=== PATIENT | female | born 1990 | race Caucasian/White ===

== ENCOUNTER 2016-08-20 09:49 | Emergency (ER) | payer BC ==
[~2016-08-20] VITALS: Ht 160 cm; Wt 120.0 kg
[~2016-08-20 09:49] MED LIST: LABE100T16 PO; ZNTT/150 PO
[2016-08-20 09:51] VITALS: TEMP 36.7; Ht 160 cm; Wt 120.0 kg
--- NOTE | 2016-08-20 10:35 | EMERGENCY ROOM VISIT NOTE ---
History Report prepared by Emy: Ankit Meza Under the Supervision of: Dr. Jeannette Manzo M.D. First contact with patient: 09:55 Chief Complaint: COUGH Stated Complaint: COUGH,WHEEZING,CHEST PAIN Nursing Triage Summary: Wheezing since monday, went to urgent care on monday. Was put on prednisone, augmentin, and breathing treatments. Cough has been increasing and patient feels like shes getting worse. Productive cough of white sputum. History of Present Illness The patient is a 25 year old female who presents to the Emergency Room with complaints of a worsening constant dry cough for the past five days. The patient states that she is additionally having wheezing and shortness of breath. The patient denies any fever. She states that she went to urgent care four days ago, and it has not gotten any better. The patient denies having asthma, though she states that she does have a family history of asthma. Source of History: patient Onset: five days ago Position: other (global) Quality: other (cough) Timing: constant, worsening Associated Symptoms: + SOB, No fevers Note: Associated symptoms: Wheezing Review of Systems See HPI for pertinent positives & negatives. A total of 10 systems reviewed and were otherwise negative. Past Medical & Surgical Elevated blood pressure complicating , antepartum Family History Asthma Social History Smoking Status: Never Smoker Marital Status: Housing Status: lives with family Occupation Status: employed Current/Historical Medications Scheduled Amoxicillin/Clavulanate Potas (Augmentin), 5 ML PO BID Etonogestrel/Ethinyl Estradiol (Nuvaring), 1 EA VAGRING MONTHLY Miscellaneous Medications Prednisone (Prednisone), 1 MG PO Allergies Coded Allergies: No Known Allergies (Unverified , 08/20/16) Physical Exam Vital Signs Date Time Temp Pulse Resp B/P Pulse Ox O2 Delivery O2 Flow Rate FiO2 08/20/16 11:02 75 18 138/81 98 Room Air 08/20/16 09:55 100 Room Air 08/20/16 09:51 36.7 90 18 123/75 100 Room Air Physical Exam CONSTITUTIONAL: No acute distress HEENT: No icterus, moist mucous membranes NECK: No meningismus, trachea is midline. CARDIOVASCULAR: Regular rate, normal perfusion RESPIRATORY: Unlabored breathing. Clear to auscultation. GASTROINTESTINAL: Non-tender GENITOURINARY: No flank tenderness MUSCULOSKELETAL: Full range of motion NEUROLOGIC: No acute gross focal deficits. PSYCHIATRIC: Normal affect SKIN: Normal for ethnicity. Medical Decision & Procedures ER Provider Diagnostic Interpretation: X-ray results as stated below per interpretation by me and the radiologist. TWO VIEW CHEST CLINICAL HISTORY: Cough. FINDINGS: PA and lateral chest radiographs are obtained. No prior studies are available for comparison at the time of dictation. The examination is degraded by large body habitus. The cardiomediastinal silhouette is unremarkable. The lungs and pleural spaces are clear. There is no pneumothorax. The bony thorax appears intact. IMPRESSION: No active disease in the chest. Electronically signed by: Oren Saha M.D. 08/20/2016 10:52 AM Dictated Date/Time: 08/20/2016 10:51 AM Laboratory Results Test 08/20/16 10:16 Labs reviewed by ED physician. ED Course 1021: Past medical records reviewed. The patient was evaluated in room B7. A complete history and physical examination was performed. 1105: Upon reexamination the patient is resting comfortably. I discussed results and treatment plan with the patient. She verbalizes agreement and understanding. The patient is ready for discharge. Medical Decision Differential diagnoses include but are not limited to; bronchitis, pneumonia 75-year-old presented to the emergency room in 1-2 weeks of cough and concern of her wheezing or possibly pneumonia. Vitals normal. Lungs clear. Chest x- ray negative. Patient advised she likely has a bronchitis and understands to wait another week or 2 for substantial improvement. Impression Primary Impression: Bronchitis Scribe Attestation The scribe's documentation has been prepared under my direction and personally reviewed by me in its entirety. I confirm that the note above accurately reflects all work, treatment, procedures, and medical decision making performed by me. Departure Information Dispostion Home / Self-Care Referrals No Doctor, Assigned (PCP) Forms HOME CARE DOCUMENTATION FORM, IMPORTANT VISIT INFORMATION Patient Instructions ED Bronchitis Viral, My [facility]
[2016-08-20] MEDS ORDERED: ETONMIS VAGRING (10:51)
[2016-08-20] MEDS ORDERED: AMOX1SUS74 PO (10:51)
[2016-08-20] MEDS ORDERED: PRD/1 PO (10:51)
--- NOTE | 2016-08-20 10:53 | DIAGNOSTIC IMAGING REPORT ---
TWO VIEW CHEST CLINICAL HISTORY: Cough. FINDINGS: PA and lateral chest radiographs are obtained. No prior studies are available for comparison at the time of dictation. The examination is degraded by large body habitus. The cardiomediastinal silhouette is unremarkable. The lungs and pleural spaces are clear. There is no pneumothorax. The bony thorax appears intact. IMPRESSION: No active disease in the chest. Electronically signed by: Oren Saha M.D. 08/20/2016 10:52 AM Dictated Date/Time: 08/20/2016 10:51 AM
[2016-08-20 11:02] VITALS: BP 138/81; PULSE 75; O2SAT 98
== END 2016-08-20 11:24 | disposition home or self-care (01) ==
LOC: C.EDB 09:50
DX: J40 Bronchitis, not specified as acute or chronic (principal); Z82.49 Family history of ischemic heart disease and other diseases of the circulatory system

== ENCOUNTER → 2016-08-29 | Outpatient (CLI) | payer BC ==
[~2016-08-29] MED LIST changes: +AMOX1SUS74 PO; +ETONMIS VAGRING; -LABE100T16 PO; +PRD/1 PO; -ZNTT/150 PO
[2016-08-29 12:39] LABS: PROLACTIN 10.61 ng/mL
== END | disposition home or self-care (01) ==
LOC: C.LAB 11:09
PROVIDERS: ATTEND Obstetrics & Gynecology
DX: N91.2 Amenorrhea, unspecified (principal)

== ENCOUNTER 2018-01-30 14:54 | Emergency (ER) | payer BC ==
[~2018-01-30] VITALS: Ht 160 cm; Wt 115.7 kg
[2018-01-30 15:01] VITALS: BP 120/78; PULSE 79; TEMP 36.8; O2SAT 97; Ht 160 cm; Wt 115.7 kg
[2018-01-30] MEDS ORDERED: LIDOCAINE/EPINEPHRINE 1% 20 ML VIAL INFIL ONE (15:15)
--- NOTE | 2018-01-30 15:20 | EMERGENCY ROOM VISIT NOTE ---
History First contact with patient: 15:02 Chief Complaint: LACERATION/CUT (NON-SUTURE) Stated Complaint: CUT ON RIGHT FOOT Nursing Triage Summary: triage note: pt reports she dropped pieces of a trampoline she was helping put together on her right foot at approx 1200 today. dressing to right foot dry and intact in triage. History of Present Illness The patient is a 27 year old female who presents to the Emergency Room with complaints of a laceration on her right foot. The patient states that she was putting together a trampoline when she dropped 1 of the metal bars and struck her right foot. The injury occurred approximately 3 hours ago. She states that she elevated the foot and applied hydrogen peroxide and Neosporin. She reports some throbbing pain rated a 3/10. Her tetanus is up-to-date within the past 5 years. She denies any numbness or weakness. She is having no difficulty moving her toes. She denies any other injuries. There is no active bleeding at this time. She has been able to walk. Review of Systems A complete 6 point review of systems was reviewed with the patient with pertinent positives and negatives as per history of present illness. All else were negative. Past Medical/Surgical History Medical Problems: (1) No significant active problems Surgical Problems: (1) History of section Family History Asthma Social History Smoking Status: Never Smoker Alcohol Use: occasionally Marital Status: Housing Status: lives with family Occupation Status: employed Current/Historical Medications No Active Prescriptions or Reported Meds Physical Exam Vital Signs Date Time Temp Pulse Resp B/P (MAP) Pulse Ox O2 Delivery O2 Flow Rate FiO2 01/30/18 15:01 36.8 79 18 120/78 97 Room Air Physical Exam VITALS: Vitals are noted on the nurse's note and reviewed by myself. Vital signs stable. GENERAL: This is a 27-year-old, in no acute distress, nondiaphoretic, well- developed well-nourished. SKIN: There is a 4 cm linear laceration to the lateral aspect of the dorsum of the right foot. The laceration gapes slightly but there are no foreign bodies, significant vessels, tendons or bones seen in the base of the wound. There is no active bleeding. MUSCULOSKELETAL: Full range of motion of the right ankle and all toes. Capillary refill within 2 seconds. NEURO: Patient was alert and oriented to person place and time. Distal sensation intact. Medical Decision & Procedures Procedure Verbal consent was obtained to perform the procedure. Using sterile technique the wound was cleaned with Betadine. The area was sterilely draped. 6 ml of 1 % buffered lidocaine with epinephrine was used to anesthetize the laceration. Once the patient was anesthetized, the wound was copiously irrigated under pressure with sterile saline. The wound was explored and there were no deep structures injured such as tendons, bone, or significant blood vessels. The laceration was repaired using 6 simple interrupted 5-0 nylon sutures with the wound edges being well approximated. The patient tolerated the procedure well. Hemostasis was achieved. The area was cleaned with sterile saline and dressed with bacitracin ointment and bandage. Medical Decision The patient was evaluated as above. Laceration repair was performed as noted above. A dressing was applied and the patient was placed in a postoperative shoe for her comfort. Suture care instructions were discussed with the patient. She verbalized understanding of my assessment and treatment plan and was discharged home in good condition. Medication Reconcilliation Current Medication List: was personally reviewed by me Blood Pressure Screening Patient's blood pressure: Normal blood pressure Impression Primary Impression: Laceration of foot Departure Information Dispostion Home / Self-Care Condition GOOD Prescriptions No Active Prescriptions or Reported Meds Referrals No Doctor, Assigned (PCP) Patient Instructions My [facility] Additional Instructions You have received 6 sutures on your foot. These sutures are NOT dissolvable and WILL need to be removed by a health care provider in 12-14 days. You can return to the Emergency Department or contact your Primary Care Provider to have the sutures removed. Proper wound care is essential for adequate wound healing and infection prevention. You can shower and clean the wound with soap and water. Do not scour over the wound, pat dry with a towel. Do not submerse the wound (i.e. bathe or dish wash) until the sutures have been removed. You can use an antibiotic ointment with a dressing over the wound for the next 3-4 days. After this time you may leave the wound dry and open to the air. If crust develops over the wound you can use a Q-tip to apply a 1:1 peroxide:water solution to clean the wound. Look for signs of infection of the wound including: increased pain, swelling, foul discharge, streaking, or increased temperature. If any of these are noticed you should return to the Emergency Department for further assessment and treatment. As with any laceration you may have received nerve damage to the surrounding tissues. This damage may or may not be permanent. You should keep the area covered with sunscreen for the first 6 months to 1 year when at risk for exposure to help minimize scarring. You can also use scar reducing creams or Vitamin E oil to help minimize scarring. For pain control, you can use the following uhgh-tia-bscdimh medicines (if >12 yo): - Regular strength (325mg/tab) Tylenol (acetaminophen) 2 tabs every 4-6 hours as needed. Do not exceed 12 tablets in a 24 hour period. Avoid taking more than 4 grams (4000 mg) of Tylenol per day. This includes any other sources of acetaminophen you may take on a regular basis. - Regular strength (200 mg/tab) Advil (ibuprofen) 1-2 tabs every 4-6 hours as needed. Do not exceed a dose of 3200 mg per day. Wear the postoperative shoe for the next 4-5 days or as needed for pain/ difficulty walking. Return to the emergency department if your symptoms worsen despite treatment course outlined above. Problem Qualifiers Primary Impression: Laceration of foot Encounter type: initial encounter Laterality: right Qualified Codes: S91.311A - Laceration without foreign body, right foot, initial encounter
== END 2018-01-30 16:29 | disposition home or self-care (01) ==
LOC: C.EDB 14:55 → C.EDD 16:29
DX: S91.311A Laceration without foreign body, right foot, initial encounter (principal); W20.8XXA Other cause of strike by thrown, projected or falling object, initial encounter

== ENCOUNTER 2019-09-23 05:27 | Inpatient (IN) ==
--- NOTE | 2019-09-12 15:35 | History and Physical Report ---
DATE OF ADMISSION: 09/23/2019 CHIEF COMPLAINT: Previous , term . HISTORY OF PRESENT ILLNESS: The patient is a 28-year-old 3, para 1, had 1 spontaneous AB at 9 weeks. Present is a Clomid . She was on 5 days a cycle of 150 mg Clomid daily. Ultrasound in the first trimester, due date is 09/30/2019. Present has been complicated by some elevation of blood pressure. In her last , she had to be induced at 39 weeks due to blood pressure and she was taking a baby aspirin during most of this . Her first delivery was in 2013, female, failed induction, at 7 pounds, 39 weeks' gestation, induction for elevated blood pressure and sectioned due to cephalopelvic disproportion. Present is scheduled for repeat section due to her previous and cephalopelvic disproportion. PAST MEDICAL HISTORY: She has a girl in good health. ALLERGIES: No known drug allergies. PAST SURGICAL HISTORY: She had one , one D and E, tonsillectomy and adenoidectomy, wisdom teeth removed. MEDICAL HISTORY: No history of rheumatic fever, heart disease, heart murmur, diabetes, or tuberculosis. SOCIAL HISTORY: No smoking. No excessive alcohol intake. 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 FAMILY HISTORY: Mom is 56 in good health. Father is 60, has diabetes, high blood pressure, kidney failure. One brother and one sister in good health. REVIEW OF SYSTEMS: HEAD: No symptoms of frequent or severe headaches. EYES: No symptoms of blurred vision or double vision. EARS: No symptoms of frequent ear infection or difficulty hearing. PHYSICAL EXAMINATION: GENERAL: Well-developed, well-nourished 28-year-old white female, alert, oriented x3 and cooperative, in no acute distress, appeared her stated age. EYES: Conjunctivae are pink. Sclerae white, no evidence of jaundice. EARS: Had normal light reflex bilaterally. NOSE: Had normal mucosa. Septum is midline. There were no polyps. THROAT: No erythema or evidence of infection. Teeth are in good state of repair. HEAD: Normocephalic, normal distribution of hair. NECK: Supple. Trachea midline. Thyroid is not enlarged. There is no adenopathy appreciated. Both carotids are of good intensity. CHEST: Clear to auscultation and percussion. No wheezes, rales or rhonchi appreciated. BREASTS: Normal. ABDOMEN: Revealed term size , estimated weight 7-8 pounds. Well-healed Pfannenstiel scar. PELVIC: Vertex presentation, floating. MUSCULOSKELETAL: Revealed no calf tenderness. IMPRESSIONS OF THIS CASE: Status post section, status post dilation and evacuation, status post tonsillectomy and adenoidectomy, status post wisdom teeth removal and history of hypertension in . PLAN: Repeat section due to cephalopelvic disproportion. MARIA ISABEL
--- NOTE | 2019-09-17 14:49 | Anesthesiology Consultation ---
Date of Service September 17, 2019 Assessment & Plan (1) Encounter for pre-operative examination: Chart Review Chart Review: Acceptable Risk for Surgery and Patient seen in Pre Admission Testing Teaching & Discussion Instructed NPO after midnight before surgery, except medications with 15 cc of water. Medication instructions provided according to the PAT guidelines. History Surgery Operation Date: 09/23/19 07:30 Proposed Procedures p Section in - Guero Alonzo MD Height/Weight Height: 5 ft 3 in Weight: 141.2 kg Allergies Allergy/AdvReac Type Severity Reaction Status Date / Time latex Allergy Intermediate RASH ON Verified 09/12/19 09:14 SKIN nickel Allergy Mild Rash Verified 09/12/19 09:14 CLEANING AGENTS Allergy Intermediate SKIN Uncoded 09/12/19 09:14 IRRITATION CHEEK JEWELRY Allergy Mild Rash Uncoded 09/12/19 09:14 Medications Home Medications Medication Instructions Recorded Confirmed Last Taken PNV cmb#95-ferrous fumarate-FA 1 tab PO DAILY 04/16/19 09/12/19 04/16/19 [] Past Medical History Medical History Acid reflux r/t Morbid obesity (Chronic) Exercise / Class Metabolic Activity II 4-5 Yardwork/Stairs/Walk up hill Past Surgical History Surgical History (Updated 09/17/19 @ 14:49 by Juan Francisco Chavarria) History of section Done for failure to progress after being induced due to concern for preeclampsia. History of D&C History of wisdom tooth extraction Past Anesthesia History No Hx of Anesthesia Complications and No Family Hx of Anesthesia Complications History of PONV No Hx of PONV and No Hx of Motion Sickness Social History Smoking Status: Never smoker Do You Dip or Chew Tobacco: No Hx Alcohol Use: No Hx Substance Use: No substance use type: does not use Review of Systems Pt denies any recent chest pain, shortness of breath, palpitations, fever or URI. +dry cough/nasal congestion Physical Exam Vital Signs BP: 132/83 (patient states has been in the 140s systolic and OB is monitoring. Pt to surgeon's office after PAT) P: 95bpm SPO2: 98% RA T: 98.2 F R: 18 Constitutional + morbidly obese ENMT Mouth: + dental restorations (possible crowns); no chipped teeth and no loose teeth Thyromental Distance: > or= 3.5 Finger Breadths (3.5) Mallampati Class: II Neck normal visual inspection; neck extension not limited Respiratory normal respiratory effort Auscultation: lungs clear to auscultation bilaterally Cardiovascular Rate/Rhythm: regular rate and regular rhythm Heart Sounds: no murmur Testing Laboratory Results 09/17/19 14:59 09/17/19 14:59 PT 9.9 Seconds (9.0-12.0) 09/17/19 14:59 INR 0.9 (0.9-1.1) 09/17/19 14:59 APTT 25.6 Seconds (21.0-31.0) 09/17/19 14:59
[2019-09-17 15:59] LABS: Basophils # (auto) 0.01 K/uL (0-0.2); Basophils % (auto) 0.1 %; Eosinophils # (auto) 0.05 K/uL (0-0.5); Eosinophils % (auto) 0.4 %; Hematocrit (blood only) 33.4 % (37-47); Hemoglobin 10.6 g/dL (12.0-16.0); Immature Granulocytes # (auto) 0.07 K/uL (0.00-0.02); Immature Granulocytes % (auto) 0.6 %; Lymphocytes # (auto) 2.09 K/uL (1.2-3.4); Lymphocytes % (auto) 17.7 %; Mean Corpuscular Hemoglobin 27.5 pg (25-34); Mean Corpuscular Hgb Conc 31.7 g/dL (32-36); Mean Corpuscular Volume 86.8 fL (80-100); Mean Platelet Volume 12.5 fL (7.4-10.4); Monocytes # (auto) 0.62 K/uL (0.11-0.59); Monocytes % (auto) 5.2 %; Platelet Count 173 K/uL (130-400); RDW Coefficient of Variation 15.1 % (11.5-14.5); RDW Standard Deviation 47.7 fL (36.4-46.3); Red Blood Count 3.85 M/uL (4.2-5.4); White Blood Count 11.84 K/uL (4.8-10.8)
[2019-09-17 16:24] LABS: BUN Creatinine Ratio 12.5 (10-20); Calcium 9.1 mg/dl (8.5-10.1); Creatinine Clr Calc Pharmacy 170.4 ml/min; Est GFR (African American) 136.7; Potassium 3.7 mmol/L (3.5-5.1)
[2019-09-17 16:25] LABS: INR 0.9 (0.9-1.1); Partial Thromboplastin Ratio 0.9; Partial Thromboplastin Time 25.6 Seconds (21.0-31.0); Prothrombin Time 9.9 Seconds (9.0-12.0)
[~2019-09-23 05:27] MED LIST changes: -AMOX1SUS74 PO; -ETONMIS VAGRING; +LACTATED RINGER'S 1,000 ML IV SCH; -PRD/1 PO
[2019-09-23] MEDS ORDERED: cefOXitin 2,000 MG in DEXTROSE 5% 50 ML IV SCH (06:00)
[2019-09-23] MEDS ORDERED: LACTATED RINGER'S 1,000 ML IV SCH ×3 (06:00→10:15)
[2019-09-23] MEDS ORDERED: CEFAZOLIN 2,000 MG in SYRINGE 0 ML IV SCH (06:00)
[2019-09-23] MEDS ORDERED: CITRIC ACID/SODIUM CITRATE 15 ML UDC PO SCH ×2 (06:00)
[2019-09-23 06:17] LABS: Basophils # (auto) 0.03 K/uL (0-0.2); Basophils % (auto) 0.2 %; Eosinophils # (auto) 0.07 K/uL (0-0.5); Eosinophils % (auto) 0.5 %; Hematocrit (blood only) 33.4 % (37-47); Hemoglobin 10.7 g/dL (12.0-16.0); Immature Granulocytes # (auto) 0.05 K/uL (0.00-0.02); Immature Granulocytes % (auto) 0.4 %; Lymphocytes # (auto) 2.73 K/uL (1.2-3.4); Lymphocytes % (auto) 20.2 %; Mean Corpuscular Hemoglobin 27.7 pg (25-34); Mean Corpuscular Volume 86.5 fL (80-100); Mean Platelet Volume 12.2 fL (7.4-10.4); Monocytes % (auto) 4.4 %; Neutrophils # (auto) 10.05 K/uL (1.4-6.5); Neutrophils % (auto) 74.3 %; Platelet Count 153 K/uL (130-400); RDW Coefficient of Variation 15.2 % (11.5-14.5); RDW Standard Deviation 47.9 fL (36.4-46.3); Red Blood Count 3.86 M/uL (4.2-5.4); White Blood Count 13.53 K/uL (4.8-10.8)
[2019-09-23 06:32] LABS: BUN Creatinine Ratio 16.8 (10-20); Creatinine Clr Calc Pharmacy 170.4 ml/min; Est GFR (African American) 136.7; Potassium 3.9 mmol/L (3.5-5.1)
[2019-09-23 07:52] LABS: Partial Thromboplastin Ratio 0.9; Partial Thromboplastin Time 26.4 Seconds (21.0-31.0); Prothrombin Time 10.1 Seconds (9.0-12.0)
[2019-09-23] MEDS ORDERED: PHENYLEPHRINE 100MCG/ML 5ML SYR ONE (07:54)
[2019-09-23] MEDS ORDERED: MoRPHine SULFATE PF 1 MG/ML 10 ML AMP/VIAL ONE (07:54)
[2019-09-23] MEDS ORDERED: fentaNYL citrate 100 MCG/2 ML VIAL ONE (07:54)
[2019-09-23] MEDS ORDERED: ONDANSETRON INJ 2 MG/ML 2 ML VIAL ONE (07:54)
[2019-09-23] MEDS ORDERED: OXYTOCIN 10 UNITS/ML VIAL ONE ×3 (07:54→09:35)
[2019-09-23] MEDS ORDERED: OXYTOCIN 10 UNITS/ML VIAL IM ONE (09:39)
[2019-09-23] MEDS ORDERED: MoRPHine SULFATE PF 1 MG/ML 10 ML AMP/VIAL INT SPINAL ONE (09:40)
[2019-09-23] MEDS ORDERED: ONDANSETRON INJ 2 MG/ML 2 ML VIAL IV PRN ×2 (09:40→10:11)
[2019-09-23] MEDS ORDERED: LACTATED RINGER'S 500 ML IV PRN (09:40)
[2019-09-23] MEDS ORDERED: MoRPHine SULFATE 2 MG/ML CARP IV PRN (09:40)
[2019-09-23] MEDS ORDERED: NALBUPHINE HCL INJ 10 MG/ML AMP IV PRN (09:40)
[2019-09-23] MEDS ORDERED: NALOXONE HCL 0.08 MG in SYRINGE 1.8 ML IV PRN (09:40)
[2019-09-23] MEDS ORDERED: ePHEDrine sulfate 50 MG/ML AMP IV PRN (09:40)
[2019-09-23] MEDS ORDERED: NALOXONE HCL 1 MG in SODIUM CHLORIDE 0.9% 1000ML 1,000 ML IV PRN (09:40)
[2019-09-23] MEDS ORDERED: DiphenhydrAMINE HCL 50 MG/ML VIAL IV PRN (09:40)
[2019-09-23] MEDS ORDERED: MEPERIDINE HCL 25 MG/ML CARP/VIAL IV PRN (09:40)
[2019-09-23] MEDS ORDERED: NALOXONE HCL 0.4 MG/1 ML VIAL/CARP IV PRN (09:40)
[2019-09-23] MEDS ORDERED: NO NARCOTICS OR SEDATIVES SCH (09:45)
[2019-09-23] MEDS ORDERED: SODIUM CHLORIDE 0.9% 1000ML 1,000 ML IV SCH (09:45)
--- NOTE | 2019-09-23 10:10 | Post Operative Brief Note ---
Immediate Post Op Note v1 Date of Surgery September 23, 2019 Pre & Post Diagnosis Operation Date: 09/23/19 07:30 Pre-Op Diagnosis: 1. Repeat section due to cephalopelvic disproportion. Post-Op Diagnosis: Same as above. macrosomia I identified the patient and participated in the time-out.: Yes Procedure Operation Date: 09/23/19 07:30 Actual Procedures p Section in LD female @ 0923 - Guero Alonzo MD Surgeon Guero Alonzo MD Onion Topper Jarvis Estimated Blood Loss 600 Findings Consistent with Post-Op Diagnosis Fluids 1200 m Specimens placenta Drains Anderson Catheter (Placed in OR patent and draining clear yellow urine) Anesthesia Type Spinal Disposition Accompanied Patient To Recovery: No Disposition: Recovery Room
[2019-09-23] MEDS ORDERED: MAGNESIUM HYDROXIDE SUSP 30 ML UDC PO PRN (10:11)
[2019-09-23] MEDS ORDERED: HYDROCORTISONE ACETATE 25 MG SUPP PR PRN (10:11)
[2019-09-23] MEDS ORDERED: SENNA 8.6 MG TAB PO PRN (10:11)
[2019-09-23] MEDS ORDERED: BENZOCAINE 20% AER SPR 82.5 GM CAN EXT PRN (10:11)
[2019-09-23] MEDS ORDERED: SUPERCREAM 0.870% 15 GM JAR EXT PRN (10:11)
--- NOTE | 2019-09-23 10:19 | Anesthesiology Progress Note ---
Date of Service September 23, 2019 Anesthesia Post Procedure Vital Signs Vital Signs: Temp Pulse Resp BP Pulse Ox 09/23/19 10:16 86 133/102 H 09/23/19 10:14 79 100 09/23/19 06:54 88 124/75 09/23/19 06:41 36.7 C 88 18 124/75 09/23/19 05:56 106 H 146/73 H 09/23/19 05:55 36.7 C 18 Transfer of Care Handoff Completed per policy Notes Mental Status: alert / awake / arousable and participated in evaluation Patient Amnestic to Procedure: Yes Nausea / Vomiting: adequately controlled Pain: adequately controlled Airway Patency, RR, SpO2: stable & adequate BP & HR: stable & adequate Hydration State: stable & adequate Neuraxial Anesthesia: was administered and sensory block is resolving Anesthetic Complications: no major complications apparent and Pt Satisfied with anesthetic care
--- NOTE | 2019-09-23 10:37 | Operative Report (OR) ---
DATE OF OPERATION: 09/23/2019 PROCEDURE: Repeat section. INDICATIONS FOR SURGERY: Intrauterine at term, previous section for cephalopelvic disproportion. POSTOPERATIVE DIAGNOSES: Intrauterine at term, previous section for cephalopelvic disproportion. Delivered macrosomic female , 10 pounds 2-1/2 ounces. SURGEON: Mercedez Alonzo MD. MINGLE OPERATOR: Dr. Conley. ESTIMATED BLOOD LOSS: 600 mL. ANESTHESIA: Spinal. OPERATIVE FINDINGS AND PROCEDURE: The patient was brought to the OR table, correctly identified by armband and conversation. Spinal anesthesia was checked and found to be adequate. Lower abdomen was painted with an alcohol based sterilizing solution. Compression stockings were applied. The patient was draped in usual sterile fashion. Pfannenstiel incision was made through a previous scar. The incision was carried down to the anterior fascia by sharp dissection. Hemostasis was secured by electrocauterization. Fascia was incised transversely it from the underlying muscle by blunt and sharp dissection. Recti muscles were in the midline exposing the peritoneum which was carefully raised and entered. Lower uterine segment was exposed. The head was palpated. An incision was made right over the center of the head, scored with a knife, then entered with scissors. Clear amniotic fluid was seen at this time. Vectis retractor was applied to the head with fundal pressure. The was delivered, some mild difficulty delivering the shoulders, suctioned through the mouth and the nose and handed off to the ophthalmic nurse who was covering at that time and was scrubbed and present during the . Following this, cord blood was taken. Placenta was removed manually. Uterus, tubes, and ovaries were brought out through the incision. Hemostasis was good. The muscular layer was approximated with a continuous layer of heavy duty chromic. The fascia was closed with continuous interlocking suture of Vicryl and then the peritoneal edges were approximated with a running 3-0 chromic. Following this, hemostasis was excellent. I injected 10 units of Pitocin into the myometrium and then suctioned the pelvis of all blood clots and debris. Uterus, tubes, and ovaries were reinserted into the abdominal cavity. Careful anatomical approximation of the anterior abdominal wall was performed. Peritoneum was closed with a running suture and the rectus muscles approximated with interrupted [id number] suture of chromic catgut. The fascia was closed with continuous interlocking suture of Vicryl on each side, tied in the midline. SubQ was approximated with a running plain and skin edges were approximated with staple clips. The patient tolerated the procedure well and left the OR in good condition. I attest to the content of the Intraoperative Record and any orders documented therein. Any exception s are noted below.
[2019-09-23] MEDS: KETOROLAC 30 MG/ML VIAL IV PRN (11:47)
[2019-09-23] MEDS: OXYTOCIN 20 UNITS in LACTATED RINGER'S 1,000 ML IV SCH ×2 (14:51→22:33)
[2019-09-23] MEDS: DOCUSATE SODIUM 100 MG CAP PO SCH (21:11)
[2019-09-23] MEDS: SIMETHICONE 80 MG CHEW PO SCH (21:11)
[2019-09-24] MEDS: KETOROLAC 30 MG/ML VIAL IV PRN (03:19)
[2019-09-24] MEDS ORDERED: KETOROLAC 30 MG/ML VIAL IV PRN (03:40)
[2019-09-24] MEDS ORDERED: DiphenhydrAMINE HCL 50 MG/ML VIAL IV PRN (03:40)
[2019-09-24] MEDS ORDERED: DC INTRASPINAL MORPHINE ONE (03:40)
[2019-09-24] MEDS ORDERED: PROMETHAZINE HCL 25 MG in SODIUM CHLORIDE 0.9% 50 ML IV PRN (03:40)
[2019-09-24] MEDS ORDERED: MEPERIDINE HCL 50 MG/ML CARP IV PRN (03:40)
[2019-09-24] MEDS ORDERED: cefOXitin 3,000 MG in DEXTROSE 5% 50 ML IV SCH (06:00)
[2019-09-24 07:50] LABS: Basophils # (auto) 0.02 K/uL (0-0.2); Basophils % (auto) 0.2 %; Eosinophils # (auto) 0.07 K/uL (0-0.5); Eosinophils % (auto) 0.6 %; Hematocrit (blood only) 30.9 % (37-47); Immature Granulocytes # (auto) 0.05 K/uL (0.00-0.02); Immature Granulocytes % (auto) 0.4 %; Lymphocytes # (auto) 2.12 K/uL (1.2-3.4); Lymphocytes % (auto) 17.8 %; Mean Corpuscular Hemoglobin 27.5 pg (25-34); Mean Corpuscular Hgb Conc 32.4 g/dL (32-36); Mean Corpuscular Volume 85.1 fL (80-100); Mean Platelet Volume 11.5 fL (7.4-10.4); Monocytes # (auto) 0.58 K/uL (0.11-0.59); Monocytes % (auto) 4.9 %; Neutrophils % (auto) 76.1 %; Platelet Count 117 K/uL (130-400); RDW Coefficient of Variation 15.1 % (11.5-14.5); Red Blood Count 3.63 M/uL (4.2-5.4); White Blood Count 11.94 K/uL (4.8-10.8)
[2019-09-24] MEDS: FERROUS SULFATE 325 MG TAB PO SCH (09:07)
[2019-09-24] MEDS: DOCUSATE SODIUM 100 MG CAP PO SCH ×2 (09:07→20:25)
[2019-09-24] MEDS: PRENATAL VITAMIN 1 TAB PO SCH (09:07)
[2019-09-24] MEDS: SIMETHICONE 80 MG CHEW PO SCH ×4 (09:07→20:25)
--- NOTE | 2019-09-24 09:19 | Obstetrical Progress Note ---
Date of Service September 24, 2019 Assessment & Plan Admission and Anticipated Discharge Date Admission Date: September 23, 2019 Physical Exam Physical Exam: abdomen soft and non tender bowel sounds normal passing flatus no calf tenderness ambulating well vaginal bleeding scant hgb 10.0 bandage removed incision is clean and dry Results & Data ([facility]) Vital Signs (Past 12 Hours) Vital Signs Temp Pulse Resp BP Pulse Ox 09/24/19 03:20 37 C 92 H 16 105/69 95 09/24/19 02:10 18 95 09/24/19 01:20 18 97 09/24/19 00:20 36.8 C 87 18 115/74 09/23/19 23:10 18 96 09/23/19 22:10 18 96
--- NOTE | 2019-09-24 09:31 | Anesthesiology Progress Note ---
Date of Service September 24, 2019 Anesthesia Post Procedure Vital Signs Vital Signs: Temp Pulse Pulse Resp BP BP Pulse Ox 09/24/19 03:20 98.6 F 92 H 16 105/69 95 09/24/19 02:10 18 95 09/24/19 01:20 18 97 09/24/19 00:20 98.2 F 87 18 115/74 09/23/19 23:10 18 96 09/23/19 22:10 18 96 09/23/19 21:10 16 97 09/23/19 20:25 99.1 F 98 H 16 109/70 96 09/23/19 20:05 18 96 09/23/19 19:20 16 95 09/23/19 17:30 16 98 09/23/19 16:30 18 98 09/23/19 15:45 98.1 F 96 H 18 107/70 97 09/23/19 14:35 16 97 09/23/19 13:35 18 98 09/23/19 12:35 97.7 F 77 18 117/76 97 09/23/19 12:19 93 H 97 09/23/19 12:17 102 H 92 09/23/19 12:14 93 H 113/68 97 09/23/19 12:09 85 98 09/23/19 12:04 82 97 09/23/19 11:59 73 96 09/23/19 11:54 83 97 09/23/19 11:49 80 98 09/23/19 11:44 82 125/68 99 09/23/19 11:39 87 98 09/23/19 11:34 75 100 09/23/19 11:29 78 99 09/23/19 11:24 98 H 100 09/23/19 11:19 78 99 09/23/19 11:14 83 100 09/23/19 11:13 83 134/60 09/23/19 11:09 82 100 09/23/19 11:05 88 137/69 09/23/19 11:04 90 99 09/23/19 10:59 76 98 09/23/19 10:56 86 141/59 H 09/23/19 10:54 85 99 09/23/19 10:49 71 20 100 09/23/19 10:45 70 124/72 09/23/19 10:44 70 100 03/16/20 10:39 75 100 09/23/19 10:35 75 118/62 09/23/19 10:34 80 100 09/23/19 10:31 84 120/64 09/23/19 10:29 91 H 100 09/23/19 10:24 88 100 09/23/19 10:19 81 100 09/23/19 10:16 86 133/102 H 09/23/19 10:14 97.5 F L 79 20 100 Pain Intensity Lower Abdomen: Pain Intensity: 2 Transfer of Care Handoff Completed per policy Notes Mental Status: alert / awake / arousable and participated in evaluation Nausea / Vomiting: adequately controlled Pain: adequately controlled Airway Patency, RR, SpO2: stable & adequate BP & HR: stable & adequate Hydration State: stable & adequate Neuraxial Anesthesia: was administered and sensory block is resolving Anesthetic Complications: no major complications apparent and Pt Satisfied with anesthetic care
[2019-09-24] MEDS: IBUPROFEN 600 MG TAB PO PRN (17:05)
[2019-09-24] MEDS: OXYCODONE/ACETAMINOPHEN 5mg/325mg TAB PO PRN (17:06)
[2019-09-24] MEDS ORDERED: bisacodyL 5 MG TABEC PO SCH (20:00)
[2019-09-24] MEDS ORDERED: ZOLPIDEM TARTRATE 5 MG TAB PO PRN (21:00)
[2019-09-25] MEDS: IBUPROFEN 600 MG TAB PO PRN ×2 (02:03→08:24)
[2019-09-25] MEDS: OXYCODONE/ACETAMINOPHEN 5mg/325mg TAB PO PRN ×2 (02:04→08:24)
[2019-09-25 06:44] LABS: Hematocrit (blood only) 29.9 % (37-47); Hemoglobin 9.6 g/dL (12.0-16.0)
[2019-09-25] MEDS: SIMETHICONE 80 MG CHEW PO SCH (08:24)
[2019-09-25] MEDS: PRENATAL VITAMIN 1 TAB PO SCH (08:24)
[2019-09-25] MEDS: DOCUSATE SODIUM 100 MG CAP PO SCH (08:24)
[2019-09-25] MEDS: FERROUS SULFATE 325 MG TAB PO SCH (08:24)
[2019-09-25] MEDS ORDERED: bisacodyL 10 MG SUPP PR PRN (10:11)
--- NOTE | 2019-09-25 11:16 | Obstetrical Progress Note ---
Date of Service September 25, 2019 Assessment & Plan Admission and Anticipated Discharge Date Admission Date: September 23, 2019 Physical Exam Physical Exam: abdomen soft and non tender incision is clean and dry passing flatus no calf tenderness ambulating well vaginal bleeding is scant Results & Data ([facility]) Vital Signs (Past 12 Hours) Vital Signs Temp Pulse Pulse Resp BP BP 09/25/19 09:15 36.7 C 91 H 18 128/81 09/24/19 23:35 36.7 C 96 H 16 108/72
--- NOTE | 2019-09-25 11:18 | Obstetrical Progress Note ---
Date of Service September 25, 2019 Assessment & Plan Admission and Anticipated Discharge Date Admission Date: September 23, 2019 Physical Exam Physical Exam: abdomen soft and non tender incision is clean and dry no calf tenderness ambulating well vaginal bleeding scant hgb 9.6 Results & Data ([facility]) Vital Signs (Past 12 Hours) Vital Signs Temp Pulse Pulse Resp BP BP 09/25/19 09:15 36.7 C 91 H 18 128/81 09/24/19 23:35 36.7 C 96 H 16 108/72
--- NOTE | 2019-09-25 11:44 | Discharge Summary (DS) ---
Mrs. Matamoros was followed in our office for care and delivery. She was an infertility patient. She got with Clomid and estradiol medication. She had a previous section for cephalopelvic disproportion. At that time the operative notes said the head did not engage into the pelvic inlet and she had been in labor for over 3 days. She was followed in the office until 39 weeks and then admitted for repeat low segment section. On the day of admission, she was taken to the operating room, given 2 grams of Mefoxin preoperatively. She underwent repeat low segment section. Delivered a live female , 10 pounds 2-1/2 ounces. Her preoperative hemoglobin was 10.7, postoperative hemoglobin was 9.6. Postoperatively, she had an excellent recovery. Her bowel sounds returned within 24 hours. Second postoperative day she requested discharge. At this time, she was ambulating well, eating well. Vaginal bleeding was scant and her pain was controlled with a combination of Percocet and Motrin. Prior to discharge the patient was told that her hemoglobin was 9.6 and that she was to stay on her vitamins and iron for her entire time that she breastfeeds.
== END 2019-09-25 13:30 | disposition home or self-care (01) | DRG 788 ==
LOC: 4S1 05:27 → EDSTATUS 07:30 → 4S2 12:42

== ENCOUNTER 2021-12-13 05:44 | Inpatient (IN) ==
--- NOTE | 2021-12-07 17:57 | History and Physical Report ---
DATE OF ADMISSION: 12/13/2021. CHIEF COMPLAINT: Intrauterine at 39 weeks' gestation, macrosomia, 2 previous sect ions. HISTORY OF PRESENT ILLNESS: The patient is a 30-year-old 4, para 2, 1 spontaneous AB in 2017 . She has been followed in our office for care and delivery. She has an early ultrasound. Her due date is 12/18/2021. She has been scheduled for repeat section. She has a history of macrosomia and cephalopelvic disproportion. OBSTETRICAL HISTORY FOLLOWS: In 2013, she had a girl, 7 pounds, after a failed inductio n, arrest at 5 cm for over 7 hours. At the time of surgery was diagnosed with cephalopelvic dispropo rtion. Following that, she had a repeat section in 2019, a girl, 10 pounds 2 ounces at 39 w eeks' gestation via repeat section. Presently being scheduled for repeat secondar y to cephalopelvic disproportion and macrosomia. ALLERGIES: No known drug allergies. PAST SURGICAL HISTORY: She has had 2 C-sections and a D and C. PAST MEDICAL HISTORY: No history of rheumatic fever, heart disease, heart murmur, diabetes, or tuber culosis. SOCIAL HISTORY: No smoking, no alcohol intake. 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 FAMILY HISTORY: She has 2 children in good health. Mom is 58 in good health. Father has multiple m edical problems including type 2 diabetes, elevated blood pressure and kidney failure. One brother a nd one sister in good health. REVIEW OF SYSTEMS: HEAD: No symptoms of frequent or severe headaches. EYES: No symptoms of blurred vision or double vision. EARS: No symptoms of frequent ear infection or difficulty hearing. NOSE: No symptoms of frequent nosebleeds or difficulty breathing through her nose. PHYSICAL EXAMINATION: GENERAL: A well-developed, well-nourished 30-year-old white female, alert, oriented x3, and cooperat vivek, in no acute distress, appeared her stated age. EYES: Conjunctivae are pink. Sclerae white, no evidence of jaundice. EARS: Had normal light reflex bilaterally. NOSE: Had normal mucosa, septum is midline. There were no polyps. THROAT: Had no erythema or evidence of infection. Teeth are in good state of repair. HEAD: Normocephalic, normal distribution of hair. NECK: Supple. Trachea midline. Thyroid is not enlarged. There is no adenopathy appreciated. Both carotids are of good intensity. CHEST: Clear to auscultation and percussion. No wheezes, rales, or rhonchi appreciated. HEART: Had regular rhythm. S1 and S2 are normal. BREASTS: Normal. ABDOMEN: Revealed an umbilical hernia. A well-healed Pfannenstiel incision. Estimated weight of over 9 pounds. PELVIC: Revealed vertex presentation, floating. Cervix posterior, closed. MUSCULOSKELETAL: Revealed no calf tenderness. IMPRESSION OF THIS CASE: Two previous sections, umbilical hernia, macrosomia and repeat joe arean section. Job ID: [id number]
--- NOTE | 2021-12-10 10:50 | Anesthesiology Consultation ---
Date of Service December 10, 2021 Assessment & Plan (1) Encounter for pre-operative examination: - neuraxial anesthesia 09/23/19: SAB L4-L5 1 attempt. - COVID screening: Per assessment on 12/10/2021: Positive home COVID test 11/19/21. Chart Review Chart Review: Acceptable Risk for Surgery and Patient seen in Pre Admission Testing Teaching & Discussion Pre-Anesthesia Teaching/Discussion Notes: Instructed NPO after midnight before surgery, except medications with 15 cc of water. Medication instructions provided according to the PAT guidelines. History Surgery Operation Date: 12/13/21 07:30 Proposed Procedures p Repeat Section - Guero Alonzo MD s Bilateral Tubal Ligation - Guero Alonzo MD Height/Weight Height: 5 ft 3 in Weight: 136.9 kg Allergies Allergy/AdvReac Type Severity Reaction Status Date / Time latex Allergy Intermediate RASH ON Verified 12/09/21 13:18 SKIN Gold Salts Allergy Mild Rash - Verified 12/09/21 13:17 gold jewelry nickel Allergy Mild Rash Verified 12/09/21 13:17 CLEANING AGENTS Allergy Intermediate SKIN Uncoded 12/09/21 13:17 IRRITATION Medications Home Medications Medication Instructions Recorded Confirmed Last Taken vit no.95-ferrous 1 tab PO DAILY 04/16/19 12/09/21 04/16/19 fumarate 28 mg-folic acid 800 mcg tablet () ibuprofen 200 mg tablet (Motrin IB) 600 mg PO Q6H PRN #60 tab 09/25/19 12/09/21 Unknown aspirin 81 mg tablet 81 mg PO QAM 12/09/21 12/09/21 Unknown labetalol 100 mg tablet 100 mg PO TID 12/09/21 12/09/21 Unknown Past Medical History Medical History (Updated 12/10/21 @ 11:22 by Angela Fernandez PA-C) Acid reflux r/t COVID-19 virus infection home test + on November 19, 2021- no hospitaliztion, fever, chills, congestion, cough, weakness,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 Exercise / Class Metabolic Activity II 4-5 Yardwork/Stairs/Walk up hill (reports minimal SOB with stairs with , denies chest discomfort/change or worsening) Past Family History Family History Father Diabetes Other Cancer Hypertension No family history of adverse response to anesthesia Past Surgical History Surgical History History of section Done for failure to progress after being induced due to concern for preeclampsia. History of D&C History of wisdom tooth extraction Past Anesthesia History No Hx of Anesthesia Complications and No Family Hx of Anesthesia Complications History of PONV No Hx of Motion Sickness and History of PONV (pt states d/t nausea and vomiting medication) Social History Smoking Status: Never smoker Do You Dip or Chew Tobacco: No Hx Alcohol Use: No Hx Substance Use: No substance use type: does not use Review of Systems Snoring, denies witnessed apneas. Patient denies chest pain, fever, chills, cough, wheezing, or palpitations. Physical Exam Vital Signs Vitals BP 113/76 P 94 TEMP 98.4 SP02 98% on RA RESP 17 Physical Full cervical extension range of motion without pain TMD 3.5 finger breaths Mallampati Score 3 Dentition: intact, two missing one upper right back and one lower left missing teeth; denies chipped or loose teeth, implants or bridges Lungs: normal respiratory effort. Clear throughout to auscultation, no adventitious breath sounds Cardiac: regular rate and rhythm, no murmurs noted Carotid arteries: negative bruit bilat Lab Results Anesthesia Preop Results Results Anesthesia Widget: WBC 10.12 K/uL (4.8-10.8) 12/10/21 Hgb 10.8 g/dL (12.0-16.0) L 12/10/21 Hct 34.0 % (37-47) L 12/10/21 Plt 157 K/uL (130-400) 12/10/21 Na 137 mmol/L (136-145) 12/10/21 K 3.8 mmol/L (3.5-5.1) 12/10/21 Cl 108 mmol/L (98-107) H 12/10/21 CO2 21 mmol/L (21-32) 12/10/21 BUN 12 mg/dl (6-23) 12/10/21 Creat 0.61 mg/dl (0.6-1.2) 12/10/21 Glucose Level 107 mg/dl (70-99(Fasting)) H 12/10/21 PT 9.6 Seconds (9.0-12.0) 12/10/21 PTT 26.7 Seconds (21.0-31.0) 12/10/21 INR 0.9 (0.9-1.1) 12/10/21 Blood Type A Positive 12/10/21 Antibody Screen NEGATIVE 12/10/21 Testing Laboratory Results PAT testing will be faxed to surgeon's office.
[2021-12-13] MEDS ORDERED: cefOXitin 2,000 MG in DEXTROSE 5% 50 ML IV SCH (06:00)
[2021-12-13] MEDS ORDERED: CITRIC ACID/SODIUM CITRATE 15 ML UDC PO SCH (06:00)
[2021-12-13] MEDS ORDERED: LACTATED RINGER'S 1,000 ML IV SCH ×2 (06:00→10:00)
[2021-12-13 06:32] LABS: Basophils # (auto) 0.01 K/uL (0-0.2); Basophils % (auto) 0.1 %; Eosinophils # (auto) 0.08 K/uL (0-0.5); Eosinophils % (auto) 0.7 %; Hematocrit (blood only) 33.1 % (37-47); Hemoglobin 10.8 g/dL (12.0-16.0); Immature Granulocytes # (auto) 0.08 K/uL (0.00-0.02); Immature Granulocytes % (auto) 0.7 %; Lymphocytes # (auto) 2.36 K/uL (1.2-3.4); Lymphocytes % (auto) 20.3 %; Mean Corpuscular Hemoglobin 28.9 pg (25-34); Mean Corpuscular Volume 88.5 fL (80-100); Monocytes # (auto) 0.71 K/uL (0.11-0.59); Monocytes % (auto) 6.1 %; Neutrophils # (auto) 8.38 K/uL (1.4-6.5); Neutrophils % (auto) 72.1 %; Platelet Count 155 K/uL (130-400); RDW Coefficient of Variation 14.9 % (11.5-14.5); RDW Standard Deviation 47.8 fL (36.4-46.3); Red Blood Count 3.74 M/uL (4.2-5.4); White Blood Count 11.62 K/uL (4.8-10.8)
[2021-12-13] MEDS ORDERED: SODIUM CHLORIDE 0.9% 250 ML IV PRN (06:36)
[2021-12-13 06:39] LABS: Mean Corpuscular Hgb Conc 32.6 g/dL (32-36)
[2021-12-13] MEDS ORDERED: ONDANSETRON INJ 2 MG/ML 2 ML VIAL ONE (06:52)
[2021-12-13] MEDS ORDERED: MoRPHine SULFATE PF 1 MG/ML 10 ML AMP/VIAL ONE (06:52)
[2021-12-13] MEDS ORDERED: OXYTOCIN 10 UNITS/ML 10ML VIAL ONE ×2 (06:52→08:40)
[2021-12-13] MEDS ORDERED: KETOROLAC 30 MG/ML VIAL ONE (06:52)
[2021-12-13] MEDS ORDERED: fentaNYL citrate 100 MCG/2 ML VIAL ONE (06:52)
[2021-12-13] MEDS ORDERED: LIDOCAINE 2%/EPINEPHRINE 1:200,000 20 ML SDV ONE (08:41)
[2021-12-13] MEDS ORDERED: LIDOCAINE 1% LOCAL 20 ML VIAL ONE (08:45)
[2021-12-13] MEDS ORDERED: EPINEPHrine INJ 1 MG/ML AMP ONE (08:45)
[2021-12-13] MEDS ORDERED: MoRPHine SULFATE PF 1 MG/ML 10 ML AMP/VIAL INT SPINAL ONE (09:03)
[2021-12-13] MEDS ORDERED: fentaNYL citrate 100 MCG/2 ML VIAL IV PRN (09:03)
[2021-12-13] MEDS ORDERED: ACETAMINOPHEN 325 MG TAB PO PRN (09:03)
[2021-12-13] MEDS ORDERED: NALOXONE HCL 1 MG in SODIUM CHLORIDE 0.9% 1000ML 1,000 ML IV PRN (09:03)
[2021-12-13] MEDS ORDERED: LACTATED RINGER'S 500 ML IV PRN (09:03)
[2021-12-13] MEDS ORDERED: NALOXONE HCL 0.4 MG/1 ML VIAL/CARP IV PRN (09:03)
[2021-12-13] MEDS ORDERED: ONDANSETRON INJ 2 MG/ML 2 ML VIAL IV PRN (09:03)
[2021-12-13] MEDS ORDERED: ePHEDrine sulfate 50 MG/ML AMP IV PRN (09:03)
[2021-12-13] MEDS ORDERED: HYDROmorphone INJ 0.5 MG/0.5 ML SYR IV PRN (09:03)
[2021-12-13] MEDS ORDERED: NALBUPHINE HCL INJ 10 MG/ML AMP IV PRN (09:03)
[2021-12-13] MEDS ORDERED: NALOXONE HCL 0.08 MG in SYRINGE 1.8 ML IV PRN (09:03)
[2021-12-13] MEDS ORDERED: diphenhydrAMINE 50 MG/ML VIAL IV PRN (09:03)
[2021-12-13] MEDS ORDERED: SODIUM CHLORIDE 0.9% 1000ML 1,000 ML IV SCH (09:15)
[2021-12-13] MEDS ORDERED: DC INTRASPINAL MORPHINE SCH (09:15)
[2021-12-13] MEDS ORDERED: NO NARCOTICS OR SEDATIVES SCH (09:15)
[2021-12-13] MEDS ORDERED: BENZOCAINE 20% AER SPR 82.5 GM CAN EXT PRN (09:55)
[2021-12-13] MEDS ORDERED: HYDROCORTISONE ACETATE 25 MG SUPP PR PRN (09:55)
[2021-12-13] MEDS ORDERED: SENNA 8.6 MG TAB PO PRN (09:55)
[2021-12-13] MEDS ORDERED: DIPHTHERIA/TETANUS/PERTUSSIS 0.5 ML SYR/VIAL IM ONE (09:55)
[2021-12-13] MEDS ORDERED: MAGNESIUM HYDROXIDE SUSP 30 ML UDC PO PRN (09:55)
--- NOTE | 2021-12-13 10:05 | Post Operative Brief Note ---
Immediate Post Op Note v1 Date of Surgery December 13, 2021 Pre & Post Diagnosis Operation Date: 12/13/21 07:30 Pre-Op Diagnosis: Intrauterine at 39 weeks' gestation, macrosomia, 2 previous sections. desire for permanent sterilization Post-Op Diagnosis: Intrauterine at 39 weeks' gestation, macrosomia, 2 previous sections. omental adhesions I identified the patient and participated in the time-out.: Yes Procedure Operation Date: 12/13/21 07:30 Actual Procedures p Repeat Section(Not Applicable) - Guero Alonzo MD s Bilateral Tubal Ligation - Guero Alonzo MD Surgeon Guero Alonzo MD [place]ades Supervisor Dr Shen Estimated Blood Loss 600 (ml) Findings Consistent with Post-Op Diagnosis omental adhesions Drains Anderson Catheter (Latex free, inserted after spinal anesthesia, draining clear yellow urine. ) Anesthesia Type Spinal Complications none Disposition Disposition: Recovery Room
--- NOTE | 2021-12-13 10:28 | Anesthesiology Progress Note ---
Date of Service December 13, 2021 Anesthesia Post Procedure Vital Signs Vital Signs: Temp Pulse Resp BP Pulse Ox 12/13/21 10:22 81 96 12/13/21 10:21 73 89 L 12/13/21 10:17 72 109/56 L 98 12/13/21 10:12 64 99 12/13/21 10:11 66 122/57 L 12/13/21 10:07 71 108/58 L 99 12/13/21 07:14 77 132/69 12/13/21 07:13 98.2 F 77 20 132/69 12/13/21 06:08 97.9 F 88 18 122/71 12/13/21 06:00 97.9 F 18 Transfer of Care Handoff Completed per policy Notes Mental Status: alert / awake / arousable and participated in evaluation Patient Amnestic to Procedure: Yes Nausea / Vomiting: adequately controlled Pain: adequately controlled Airway Patency, RR, SpO2: stable & adequate BP & HR: stable & adequate Hydration State: stable & adequate Neuraxial Anesthesia: was administered and sensory block is resolving Anesthetic Complications: no major complications apparent and Pt Satisfied with anesthetic care
[2021-12-13] MEDS ORDERED: OXYTOCIN 10 UNITS/ML 10ML VIAL IM ONE (11:15)
[2021-12-13] MEDS ORDERED: LIDOCAINE 2%/EPINEPHRINE 1:200,000 20 ML SDV INFIL ONE (11:18)
[2021-12-13] MEDS: OXYTOCIN 20 UNITS in LACTATED RINGER'S 1,000 ML IV SCH ×2 (12:49→21:00)
[2021-12-13] MEDS: SIMETHICONE 80 MG CHEW PO SCH ×3 (14:51→20:53)
[2021-12-13] MEDS: KETOROLAC 30 MG/ML VIAL IV PRN (17:11)
--- NOTE | 2021-12-13 18:12 | Operative Report (OR) ---
DATE OF SERVICE: 12/13/2021 OPERATIVE PROCEDURE: Repeat low segment section, bilateral tubal ligation. INDICATIONS FOR SURGERY: Two prior sections, history of macrosomia, desire for permanent lizbeth rilization. PREOPERATIVE DIAGNOSES: Intrauterine at 39+ weeks' gestation, history of macrosomia, two p revious sections, desire for permanent sterilization. POSTOPERATIVE DIAGNOSES: Delivered live female , omental adhesions. SURGEON: Mercedez Alonzo MD. RIPPLER: Jesica Ji MD. ESTIMATED BLOOD LOSS: 600 mL. ANESTHESIA: Spinal. OPERATIVE FINDINGS AND PROCEDURE: The patient was brought to the OR table, correctly identified by a rmband and conversation. Spinal anesthesia was administered. Compression stockings were applied. F oley catheter was inserted aseptically in the bladder, connected to gravity drainage. The lower abdom en and subumbilical area was painted with an alcohol-based sterilizing solution. We used 3 large tape s to tape up her pannus and provide good exposure of prior Pfannenstiel incision. Allowed the alcohol based solution to dry for 3 minutes and draped in the usual sterile fashion. Tested the level of the anesthesia and then proceeded to make an incision through a previous Pfannenstiel scar. Incision wa s carried down to the anterior fascia by sharp dissection. Hemostasis was secured by electrocauteriz ation. The fascia was incised transversely, from the underlying muscle by blunt and sharp dissecti on. Recti muscles were in the midline exposing the peritoneum, which was carefully raised and entered. There was some omentum adhesed to the undersurface of the incision on the right side to wards the top and this was isolated, grasped with 2 Kellys, cut and then ligated with Vicryl. Follow ing this, we used a retractor to provide adequate exposure of the lower uterine segment. W e then made an incision above the vesicouterine fold, undermined the bladder bluntly, pushed it out o f the operative field. Scored the lower uterine segment with a knife and then entered with the scissors. Clear amniotic flu id was obtained at this time. I grasped the infant's head with my left hand and then applied a vecti s retractor and then with fundal pressure, we pushed out the , then the shoulders and the body. Suctioned the infant through the mouth and the nose, allowed the cord to pulse for 1 minute, then c lamped it, cut it and handed the child off to the document scanner. Cord blood was taken. Placenta was removed manually. Uterus, tubes and ovaries were brought out through the incision. Uterine cavity was wiped clean with a clean sponge. 10 units of Pitocin was injected into the myometrium. The lower uterine segment wa s then closed in layers. The muscular layer was closed with a heavy chromic gut suture. Then, a sec ond layer was approximated over this. The fascial layer was approximated over this covering up the m uscular layer and this was done with a horizontal suture of heavy Vicryl. Hemostasis now was excelle nt. Peritoneal edges were restored with a 3-0 chromic. This restored the integrity of the vesicoute rine fold. In the posterior behind the uterus, the pelvis was cleansed of all blood clots and debris . Attention was now turned to doing bilateral tubal ligation. The tube was grasped in the mid portion, ligated proximally and distally with a plain tie. Then, the broad ligament was infiltrated with loc al with epinephrine between the 2 ties. Broad ligament was opened up. The tube was dissected out and then removed. Then, the broad ligament was closed front to back, burying the proximal stump of the t ube and exteriorizing the distal stump. This was done for both the right and left side. Hemostasis was good. The retractor was removed. Uterus, tubes and ovaries were reinserted into the abdominal c avity. Hemostasis was checked for, it was good. Careful anatomical approximation of the anterior abdominal wall was performed. The peritoneum was cl osed with a mattress suture of chromic catgut. Recti muscles were approximated with interrupted figu re-of-eight suture of chromic catgut. The fascia was closed with continuous interlocking suture of V icryl on each side, tied in the midline. Subcutaneous was approximated with a running plain and skin edges were approximated with staple clip. The patient tolerated the procedure well and left the OR in good condition. Job ID: [id number]
[2021-12-13] MEDS: DOCUSATE SODIUM 100 MG CAP PO SCH (20:53)
[2021-12-14] MEDS: KETOROLAC 30 MG/ML VIAL IV PRN (02:29)
[2021-12-14] MEDS ORDERED: MEPERIDINE HCL 50 MG/ML CARP IV PRN (03:03)
[2021-12-14] MEDS ORDERED: KETOROLAC 30 MG/ML VIAL IV PRN (03:03)
[2021-12-14] MEDS ORDERED: ZOLPIDEM TARTRATE 5 MG TAB PO PRN (03:03)
[2021-12-14] MEDS ORDERED: diphenhydrAMINE Capsule 25 MG CAP PO PRN (03:03)
[2021-12-14] MEDS ORDERED: ONDANSETRON INJ 2 MG/ML 2 ML VIAL IV PRN (03:03)
[2021-12-14] MEDS ORDERED: diphenhydrAMINE 50 MG/ML VIAL IV PRN (03:03)
[2021-12-14] MEDS ORDERED: PROMETHAZINE HCL 25 MG in SODIUM CHLORIDE 0.9% 50 ML IV PRN (03:03)
[2021-12-14 06:29] LABS: Basophils # (auto) 0.01 K/uL (0-0.2); Basophils % (auto) 0.1 %; Eosinophils # (auto) 0.12 K/uL (0-0.5); Hematocrit (blood only) 32.1 % (37-47); Hemoglobin 10.3 g/dL (12.0-16.0); Immature Granulocytes # (auto) 0.05 K/uL (0.00-0.02); Immature Granulocytes % (auto) 0.4 %; Lymphocytes # (auto) 2.14 K/uL (1.2-3.4); Lymphocytes % (auto) 17.3 %; Mean Corpuscular Hemoglobin 28.3 pg (25-34); Mean Corpuscular Hgb Conc 32.1 g/dL (32-36); Mean Corpuscular Volume 88.2 fL (80-100); Mean Platelet Volume 11.5 fL (7.4-10.4); Monocytes # (auto) 0.59 K/uL (0.11-0.59); Monocytes % (auto) 4.8 %; Neutrophils # (auto) 9.47 K/uL (1.4-6.5); Neutrophils % (auto) 76.4 %; Platelet Count 122 K/uL (130-400); RDW Coefficient of Variation 14.9 % (11.5-14.5); RDW Standard Deviation 47.9 fL (36.4-46.3); Red Blood Count 3.64 M/uL (4.2-5.4); White Blood Count 12.38 K/uL (4.8-10.8)
[2021-12-14] MEDS: SIMETHICONE 80 MG CHEW PO SCH ×4 (07:58→20:29)
[2021-12-14] MEDS: oxyCODONE/ACETAMINOPHEN 5mg/325mg TAB PO PRN ×5 (07:58→23:18)
[2021-12-14] MEDS: FERROUS SULFATE 325 MG TAB PO SCH (07:59)
[2021-12-14] MEDS: PRENATAL VITAMIN 1 TAB PO SCH (07:59)
[2021-12-14] MEDS: IBUPROFEN 600 MG TAB PO PRN ×4 (07:59→21:59)
[2021-12-14] MEDS: DOCUSATE SODIUM 100 MG CAP PO SCH ×2 (07:59→20:29)
--- NOTE | 2021-12-14 08:40 | Obstetrical Progress Note ---
Date of Service December 14, 2021 Assessment & Plan Admission and Anticipated Discharge Date Admission Date: December 13, 2021 Subjective abdomen soft and non tender bandage removed incision is clean and dry passing flatus no calf tenderness ambulating well vaginal bleeding scant hgb 10.3 Results & Data ([facility]) Vital Signs (Past 12 Hours) Vital Signs Temp Pulse Resp BP Pulse Ox 12/14/21 08:15 36.6 C 89 18 114/62 97 12/14/21 03:24 36.9 C 98 H 18 112/72 12/14/21 02:35 20 95 12/14/21 01:35 93 H 18 L 12/14/21 00:35 18 92 12/14/21 00:10 18 94 12/13/21 23:34 36.6 C 91 H 18 102/66 94 12/13/21 22:30 16 95 12/13/21 21:30 18 94
[2021-12-14] MEDS ORDERED: bisacodyL 5 MG TABEC PO SCH (20:00)
[2021-12-15] MEDS: oxyCODONE/ACETAMINOPHEN 5mg/325mg TAB PO PRN ×3 (03:24→11:34)
[2021-12-15] MEDS: IBUPROFEN 600 MG TAB PO PRN ×3 (03:25→11:33)
[2021-12-15 07:09] LABS: Hematocrit (blood only) 33.4 % (37-47); Hemoglobin 10.5 g/dL (12.0-16.0)
[2021-12-15] MEDS: SIMETHICONE 80 MG CHEW PO SCH (07:28)
[2021-12-15] MEDS: PRENATAL VITAMIN 1 TAB PO SCH (07:29)
[2021-12-15] MEDS: FERROUS SULFATE 325 MG TAB PO SCH (07:29)
[2021-12-15] MEDS: DOCUSATE SODIUM 100 MG CAP PO SCH (07:29)
--- NOTE | 2021-12-15 07:59 | Obstetrical Progress Note ---
Date of Service December 15, 2021 Assessment & Plan Admission and Anticipated Discharge Date Admission Date: December 13, 2021 Subjective abdomen soft and non tender incision is clean and dry no calf tenderness ambulating well vaginal bleeding scant hgb 10.5 Results & Data ([facility]) Vital Signs (Past 12 Hours) Vital Signs Temp Pulse Resp BP Pulse Ox 12/15/21 07:32 36.9 C 87 16 122/80 12/14/21 23:19 36.6 C 89 16 117/79 99 12/14/21 20:25 36.8 C 89 18 109/71 96
[2021-12-15] MEDS ORDERED: bisacodyL 10 MG SUPP PR PRN (09:55)
--- NOTE | 2021-12-15 18:34 | Discharge Summary (DS) ---
DATE OF ADMISSION: 12/13/2021 DATE OF DISCHARGE: 12/15/2021 HOSPITAL COURSE: Mrs. Matamoros was admitted for repeat low segment section. She had had 2 p revious sections. She also requested permanent sterilization at the time of the . On the day of admission, she was brought in, she was tested to be COVID positive, so we did the secti on in negative pressure room. She received antibiotics in the form of Mefoxin 2 grams, then underwen t a repeat low segment section with bilateral partial salpingectomy. Estimated blood loss w as about 600 mL. Her preoperative hemoglobin was 10.8. Postoperatively, hemoglobin was 10.5. Postoperatively, she did well. She remained afebrile throughout her postoperative stay. In fact, he r bowel sounds returned in under 24 hours. The bandage was removed the following day. Incision was clean and dry. On the second postoperative day, she was ready for discharge. She was ambulating wel l, eating well and pain was well controlled with a combination of Percocet and ibuprofen. She was di scharged with pain medicine and told to return to the office in about 1 week for removal of james a nd to call if she had a temperature over 100 or any heavy bleeding. Job ID: [id number]
== END 2021-12-15 12:20 | disposition home or self-care (01) | DRG 783 ==
LOC: 4S1 05:44 → EDSTATUS 07:30 → 4E1 12:45
PROC: M.PPTLD (2021-12-13 07:30)